=== PATIENT | male | born 1975 | race African-American/Black ===

== ENCOUNTER 2020-09-26 10:39 | Inpatient (IN) ==
[2020-09-26 13:14] LABS: Basophils % 0.2 % (0.0-0.8); Hematocrit 47.1 VOL% (42.0-52.0); Hemoglobin 15.6 GM/DL (14.0-18.0); Immature Granulocytes % 0.3 %; Immature Granulocytes Absolute 0.02 #; Lymphocytes % 15.9 % (21.2-54.2); Mean Corpuscular HGB Conc 33.1 GM/DL (32-36); Mean Corpuscular Volume 89.5 FL (87-102); Mean Platelet Volume 10.3 FL (9.6-12.0); Monocytes % 6.1 % (1.7-12.7); Neutrophils % 77.5 % (38.7-73.9); Platelet Count 153 T/CUMM (130-400); Red Blood Count 5.26 MC/CUMM (3.8-5.5); Red Cell Distribution Width 12.7 % (9.3-17.3); White Blood Count 6.4 T/CUMM (4-12)
[2020-09-26 13:37] LABS: Albumin 3.4 G/DL (3.4-5.0); Bilirubin,Total 0.5 MG/DL (0.20-1.00); Calcium 8.7 MG/DL (8.5-10.1); Ferritin 1002.8 ng/ml (26-388); Osmolality,Calculated 265.5 MOS/KG (273-304); Potassium 4.5 MMOL/L (3.5-5.1); Total Protein 8.4 G/DL (6.4-8.2)
[2020-09-26 14:25] LABS: Band Neutrophils 4 % (0-10); Lymphocytes 8 % (20-55); Segmented Neutrophils 81 % (50-85); Total Cells Counted 100
[2020-09-26 14:26] LABS: Hypochromasia Slight; Platelet Estimate Adequate
[2020-09-26] MEDS ORDERED: AZITHROMYCIN INJ 500 MG in SODIUM CHLORIDE 0.9% 250 ML IV ONE ×2 (14:38→17:30)
[2020-09-26] MEDS ORDERED: DEXTROSE 50% 25 GM/50 ML VIAL IV PRN (14:38)
[2020-09-26] MEDS ORDERED: GLUCAGON 1 MG VIAL IM PRN (14:38)
[2020-09-26] MEDS ORDERED: ONDANSETRON 4 MG/2 ML VIAL IV PRN (14:43)
[2020-09-26 15:05] LABS: INR 1.1; PT Patient Result 11.9 SECS (10.5-12.0)
[2020-09-26] MEDS ORDERED: ALBUTEROL INHALER 18 GM INH PRN (16:27)
[2020-09-26] MEDS: DEXAMETHASONE 4 MG/1 ML VIAL IV SCH (17:50)
[2020-09-26] MEDS: IVERMECTIN 3 MG TABLET PO SCH (17:50)
[2020-09-26] MEDS: ZINC GLUCONATE 50 MG TABLET PO SCH (17:50)
[2020-09-26] MEDS: CHOLECALCIFEROL 1,000 UNIT TABLET PO SCH (17:50)
[2020-09-26] MEDS: CETIRIZINE 10 MG TABLET PO SCH (17:50)
[2020-09-26] MEDS ORDERED: hydrALAZINE 20 MG/1 ML VIAL IV PRN (18:01)
[2020-09-26] MEDS: ALBUTEROL INHALER 18 GM INH SCH (19:10)
[2020-09-26] MEDS: cloNIDine 0.1 MG TABLET PO SCH (22:20)
[2020-09-26] MEDS: MELATONIN 3 MG TABLET PO SCH (22:20)
[2020-09-26] MEDS: ACETAMINOPHEN 325 MG TABLET PO PRN (22:21)
[2020-09-26] MEDS: ASCORBIC ACID 500 MG TABLET PO SCH (22:22)
[2020-09-26] MEDS: FAMOTIDINE 20 MG TABLET PO SCH (22:22)
[2020-09-26] MEDS: ENOXAPARIN 40 MG/0.4 ML SYRINGE SUBCUT SCH (22:23)
[2020-09-27] MEDS: DEXAMETHASONE 4 MG/1 ML VIAL IV SCH ×8 (00:45→23:40)
[2020-09-27] MEDS: ALBUTEROL INHALER 18 GM INH SCH ×7 (01:11→23:40)
[2020-09-27 06:19] LABS: Basophils % 0.2 % (0.0-0.8); Hematocrit 47.8 VOL% (42.0-52.0); Hemoglobin 16.1 GM/DL (14.0-18.0); Immature Granulocytes % 0.2 %; Immature Granulocytes Absolute 0.01 #; Lymphocytes # 0.6 10*3/uL (1.4-4.0); Lymphocytes % 12.3 % (21.2-54.2); Mean Corpuscular HGB Conc 33.7 GM/DL (32-36); Mean Corpuscular Volume 90.5 FL (87-102); Mean Platelet Volume 10.2 FL (9.6-12.0); Monocytes % 2.9 % (1.7-12.7); Neutrophils % 84.4 % (38.7-73.9); Platelet Count 124 T/CUMM (130-400); Red Blood Count 5.28 MC/CUMM (3.8-5.5); Red Cell Distribution Width 12.6 % (9.3-17.3); White Blood Count 5.2 T/CUMM (4-12)
[2020-09-27 06:40] LABS: Band Neutrophils 1 % (0-10); Lymphocytes 9 % (20-55); Segmented Neutrophils 82 % (50-85); Total Cells Counted 100
[2020-09-27 06:53] LABS: Albumin 3.1 G/DL (3.4-5.0); Calcium 8.8 MG/DL (8.5-10.1); Ferritin 1117.9 ng/ml (26-388); Potassium 4.2 MMOL/L (3.5-5.1)
[2020-09-27] MEDS: CETIRIZINE 10 MG TABLET PO SCH (09:00)
[2020-09-27] MEDS: cloNIDine 0.1 MG TABLET PO SCH ×2 (09:00→22:00)
[2020-09-27] MEDS: AZITHROMYCIN 250 MG TABLET PO SCH (09:00)
[2020-09-27] MEDS: ZINC GLUCONATE 50 MG TABLET PO SCH (09:00)
[2020-09-27] MEDS: CHOLECALCIFEROL 1,000 UNIT TABLET PO SCH (09:00)
[2020-09-27] MEDS: FAMOTIDINE 20 MG TABLET PO SCH ×2 (09:00→22:00)
[2020-09-27] MEDS: ASCORBIC ACID 500 MG TABLET PO SCH ×2 (09:00→22:00)
[2020-09-27] MEDS: IVERMECTIN 3 MG TABLET PO SCH (09:01)
[2020-09-27] MEDS: MELATONIN 3 MG TABLET PO SCH (22:00)
[2020-09-27] MEDS: ENOXAPARIN 40 MG/0.4 ML SYRINGE SUBCUT SCH (22:05)
[2020-09-28] MEDS: ALBUTEROL INHALER 18 GM INH SCH ×6 (03:30→23:47)
[2020-09-28] MEDS: DEXAMETHASONE 4 MG/1 ML VIAL IV SCH (03:45)
[2020-09-28 06:34] LABS: Basophils % 0.1 % (0.0-0.8); Hematocrit 46.5 VOL% (42.0-52.0); Hemoglobin 15.3 GM/DL (14.0-18.0); Immature Granulocytes % 0.8 %; Immature Granulocytes Absolute 0.12 #; Lymphocytes # 0.7 10*3/uL (1.4-4.0); Lymphocytes % 4.6 % (21.2-54.2); Mean Corpuscular HGB Conc 32.9 GM/DL (32-36); Mean Corpuscular Volume 90.6 FL (87-102); Mean Platelet Volume 10.9 FL (9.6-12.0); Monocytes % 3.9 % (1.7-12.7); Neutrophils % 90.6 % (38.7-73.9); Platelet Count 165 T/CUMM (130-400); Red Blood Count 5.13 MC/CUMM (3.8-5.5); Red Cell Distribution Width 12.7 % (9.3-17.3); White Blood Count 14.5 T/CUMM (4-12)
[2020-09-28 07:12] LABS: Band Neutrophils 2 % (0-10); Lymphocytes 5 % (20-55); Platelet Estimate Adequate; Segmented Neutrophils 87 % (50-85); Total Cells Counted 100
[2020-09-28 07:19] LABS: Ferritin 1298.4 ng/ml (26-388)
[2020-09-28] MEDS: IVERMECTIN 3 MG TABLET PO SCH (09:33)
[2020-09-28] MEDS: AZITHROMYCIN 250 MG TABLET PO SCH (09:33)
[2020-09-28] MEDS: FAMOTIDINE 20 MG TABLET PO SCH ×2 (09:33→20:45)
[2020-09-28] MEDS: ZINC GLUCONATE 50 MG TABLET PO SCH (09:33)
[2020-09-28] MEDS: CHOLECALCIFEROL 1,000 UNIT TABLET PO SCH (09:33)
[2020-09-28] MEDS: ASCORBIC ACID 500 MG TABLET PO SCH ×2 (09:33→20:45)
[2020-09-28] MEDS: cloNIDine 0.1 MG TABLET PO SCH ×2 (09:33→20:45)
[2020-09-28] MEDS: CETIRIZINE 10 MG TABLET PO SCH (09:33)
[2020-09-28] MEDS: MELATONIN 3 MG TABLET PO SCH (20:44)
[2020-09-28] MEDS: ENOXAPARIN 40 MG/0.4 ML SYRINGE SUBCUT SCH (20:45)
[2020-09-29] MEDS: ALBUTEROL INHALER 18 GM INH SCH ×6 (02:51→22:29)
[2020-09-29 06:28] LABS: Basophils % 0.1 % (0.0-0.8); Hematocrit 43.9 VOL% (42.0-52.0); Hemoglobin 14.6 GM/DL (14.0-18.0); Immature Granulocytes % 0.9 %; Immature Granulocytes Absolute 0.12 #; Lymphocytes # 0.8 10*3/uL (1.4-4.0); Lymphocytes % 5.8 % (21.2-54.2); Mean Corpuscular HGB Conc 33.3 GM/DL (32-36); Mean Corpuscular Volume 91.5 FL (87-102); Mean Platelet Volume 11.1 FL (9.6-12.0); Neutrophils % 89.2 % (38.7-73.9); Platelet Count 188 T/CUMM (130-400); White Blood Count 13.1 T/CUMM (4-12)
[2020-09-29 06:54] LABS: Calcium 8.7 MG/DL (8.5-10.1); Osmolality,Calculated 284.8 MOS/KG (273-304)
[2020-09-29 06:58] LABS: Ferritin 1450.5 ng/ml (26-388)
[2020-09-29] MEDS: AZITHROMYCIN 250 MG TABLET PO SCH (08:47)
[2020-09-29] MEDS: FAMOTIDINE 20 MG TABLET PO SCH (08:47)
[2020-09-29] MEDS: CETIRIZINE 10 MG TABLET PO SCH (08:47)
[2020-09-29] MEDS: cloNIDine 0.1 MG TABLET PO SCH ×2 (08:47→22:18)
[2020-09-29] MEDS: ASCORBIC ACID 500 MG TABLET PO SCH ×2 (08:47→20:08)
[2020-09-29] MEDS: CHOLECALCIFEROL 1,000 UNIT TABLET PO SCH (08:47)
[2020-09-29] MEDS: ZINC GLUCONATE 50 MG TABLET PO SCH (08:48)
[2020-09-29] MEDS: IVERMECTIN 3 MG TABLET PO SCH (08:51)
[2020-09-29 15:10] LABS: ABG Base Excess 1.1 MMOL/L (-2.5-2.5); ABG PCO2 35.7 MM HG (35-48); ABG PH 7.448 (7.35-7.45); ABG PO2 47.7 MM HG (80-95); ABG TCO2 20.9 MMOL/L (23-27)
[2020-09-29] MEDS ORDERED: SUCCINYLCHOLINE 200 MG/10 ML VIAL IV ONE (16:54)
[2020-09-29] MEDS ORDERED: ETOMIDATE 20 MG/10 ML VIAL IV ONE ×2 (16:54→16:56)
[2020-09-29] MEDS ORDERED: SUCCINYLCHOLINE 200 MG/10 ML VIAL ONE (16:57)
[2020-09-29] MEDS ORDERED: LACTATED RINGERS 1,000 ML IV ONE (17:00)
[2020-09-29] MEDS ORDERED: MIDAZOLAM 2 MG/2 ML VIAL IV ONE (17:25)
[2020-09-29] MEDS ORDERED: MIDAZOLAM 10 MG/2 ML VIAL ONE (17:25)
[2020-09-29] MEDS ORDERED: ROCURONIUM 100 MG/10 ML VIAL IV ONE ×2 (17:30→18:07)
[2020-09-29] MEDS: METOPROLOL TARTRATE 5 MG/5 ML VIAL IV PRN (18:11)
[2020-09-29] MEDS: fentaNYL INJ 1,250 MCG in SODIUM CHLORIDE 0.9% 225 ML IV PRN (18:11)
[2020-09-29 18:12] LABS: ABG Base Excess -1.7 MMOL/L (-2.5-2.5); ABG HCO3 22.8 MMOL/L (20-26); ABG Oxygen Saturation 90.2 % (95-100); ABG PCO2 64.3 MM HG (35-48); ABG PH 7.245 (7.35-7.45); ABG PO2 72.9 MM HG (80-95); ABG TCO2 24.4 MMOL/L (23-27)
[2020-09-29] MEDS: MIDAZOLAM 100 MG in SODIUM CHLORIDE 0.9% 80 ML IV PRN ×2 (18:12→21:59)
[2020-09-29] MEDS: ROCURONIUM 500 MG in SODIUM CHLORIDE 0.9% 500 ML IV PRN (18:13)
[2020-09-29] MEDS: ENOXAPARIN 80 MG/0.8 ML SYRINGE SUBCUT SCH (18:50)
[2020-09-29 19:49] LABS: Bilirubin,Urine Negative (Negative); Blood, Urine Small mg/dL (Negative); Glucose,Urine (UA) Negative (Negative); Ketones,Urine Negative (Negative); Mucus,Urine Occasional /LPF (Occasional); Nitrite,Urine Negative (Negative); Protein,Urine >=500 MG/DL; RBC,Urine 7 /HPF (0-4); Squamous Epithelial Cell,Urine Occasional /HPF (0-10); Urine Appearance Slightly Hazy (Clear); Urine Color Yellow (Yellow); Urine Specific Gravity 1.016 (1.001-1.035)
[2020-09-29] MEDS: MELATONIN 3 MG TABLET PO SCH (20:08)
[2020-09-29] MEDS: FAMOTIDINE 20 MG/2 ML VIAL IV SCH (21:52)
[2020-09-29] MEDS: cefTRIAXone 2,000 MG in SODIUM CHLORIDE 0.9% 100 ML IV SCH (21:52)
[2020-09-29] MEDS: cloNIDine 0.2 MG/24 HR PATCH TRANSDERM SCH (23:01)
[2020-09-30] MEDS: fentaNYL INJ 1,250 MCG in SODIUM CHLORIDE 0.9% 225 ML IV PRN ×4 (00:09→21:47)
[2020-09-30] MEDS: ROCURONIUM 500 MG in SODIUM CHLORIDE 0.9% 500 ML IV PRN ×4 (02:34→20:50)
[2020-09-30] MEDS: ALBUTEROL INHALER 18 GM INH SCH ×6 (02:34→22:00)
[2020-09-30] MEDS: MIDAZOLAM 100 MG in SODIUM CHLORIDE 0.9% 80 ML IV PRN ×5 (03:55→21:48)
[2020-09-30 04:09] LABS: Basophils % 0.1 % (0.0-0.8); Hemoglobin 13.3 GM/DL (14.0-18.0); Immature Granulocytes % 0.8 %; Immature Granulocytes Absolute 0.09 #; Lymphocytes # 1.2 10*3/uL (1.4-4.0); Lymphocytes % 11.4 % (21.2-54.2); Mean Corpuscular HGB Conc 31.7 GM/DL (32-36); Mean Platelet Volume 10.9 FL (9.6-12.0); Monocytes % 6.3 % (1.7-12.7); Neutrophils % 81.4 % (38.7-73.9); Platelet Count 178 T/CUMM (130-400); Red Blood Count 4.47 MC/CUMM (3.8-5.5); Red Cell Distribution Width 13.5 % (9.3-17.3); White Blood Count 10.8 T/CUMM (4-12)
[2020-09-30 04:18] LABS: ABG HCO3 25.2 MMOL/L (20-26); ABG Oxygen Saturation 93.8 % (95-100); ABG PCO2 46.8 MM HG (35-48); ABG PH 7.369 (7.35-7.45); ABG PO2 72.6 MM HG (80-95); ABG TCO2 23.6 MMOL/L (23-27)
[2020-09-30 04:35] LABS: Calcium 8.3 MG/DL (8.5-10.1); Potassium 4.3 MMOL/L (3.5-5.1)
[2020-09-30] MEDS: ENOXAPARIN 80 MG/0.8 ML SYRINGE SUBCUT SCH ×2 (06:11→17:33)
[2020-09-30] MEDS: FAMOTIDINE 20 MG/2 ML VIAL IV SCH ×2 (09:09→21:40)
[2020-09-30] MEDS: CHOLECALCIFEROL 1,000 UNIT TABLET PO SCH (09:11)
[2020-09-30] MEDS: CETIRIZINE 10 MG TABLET PO SCH (09:11)
[2020-09-30] MEDS: ASCORBIC ACID 500 MG TABLET PO SCH ×2 (09:11→21:35)
[2020-09-30] MEDS: ZINC GLUCONATE 50 MG TABLET PO SCH (09:11)
[2020-09-30] MEDS: AZITHROMYCIN 250 MG TABLET PO SCH (09:11)
[2020-09-30] MEDS: IVERMECTIN 3 MG TABLET PO SCH (09:22)
[2020-09-30] MEDS: methylPREDNISolone SOD SUC 40 MG/1 ML VIAL IV SCH ×2 (16:33→21:37)
[2020-09-30] MEDS: MELATONIN 3 MG TABLET PO SCH (21:17)
[2020-09-30] MEDS: cefTRIAXone 2,000 MG in SODIUM CHLORIDE 0.9% 100 ML IV SCH (21:37)
[2020-09-30] MEDS ORDERED: DEXTROSE 50% 25 GM/50 ML VIAL IV PRN (22:37)
[2020-09-30] MEDS ORDERED: GLUCAGON 1 MG VIAL IM PRN (22:37)
[2020-10-01] MEDS: INSULIN REGULAR 100 UNIT/ML SUBCUT SCH ×4 (00:34→18:32)
[2020-10-01] MEDS: ALBUTEROL INHALER 18 GM INH SCH ×6 (02:52→22:01)
[2020-10-01 03:47] LABS: ABG Base Excess -2.9 MMOL/L (-2.5-2.5); ABG HCO3 22.5 MMOL/L (20-26); ABG PCO2 41.6 MM HG (35-48); ABG PH 7.351 (7.35-7.45); ABG TCO2 23.8 MMOL/L (23-27)
[2020-10-01] MEDS: methylPREDNISolone SOD SUC 40 MG/1 ML VIAL IV SCH ×4 (03:59→21:41)
[2020-10-01] MEDS: MIDAZOLAM 100 MG in SODIUM CHLORIDE 0.9% 80 ML IV PRN ×2 (04:02→09:00)
[2020-10-01] MEDS: ROCURONIUM 500 MG in SODIUM CHLORIDE 0.9% 500 ML IV PRN (04:03)
[2020-10-01] MEDS: fentaNYL INJ 1,250 MCG in SODIUM CHLORIDE 0.9% 225 ML IV PRN (05:14)
[2020-10-01] MEDS: ENOXAPARIN 80 MG/0.8 ML SYRINGE SUBCUT SCH ×2 (05:19→18:32)
[2020-10-01 06:16] LABS: Basophils % 0.2 % (0.0-0.8); Hematocrit 40.4 VOL% (42.0-52.0); Hemoglobin 12.9 GM/DL (14.0-18.0); Immature Granulocytes % 1.5 %; Immature Granulocytes Absolute 0.14 #; Lymphocytes # 0.6 10*3/uL (1.4-4.0); Lymphocytes % 6.5 % (21.2-54.2); Mean Corpuscular HGB Conc 31.9 GM/DL (32-36); Mean Corpuscular Volume 95.7 FL (87-102); Mean Platelet Volume 10.6 FL (9.6-12.0); Monocytes % 4.2 % (1.7-12.7); Neutrophils % 87.6 % (38.7-73.9); Platelet Count 227 T/CUMM (130-400); Red Blood Count 4.22 MC/CUMM (3.8-5.5); Red Cell Distribution Width 13.9 % (9.3-17.3); White Blood Count 9.4 T/CUMM (4-12)
[2020-10-01 06:33] LABS: Calcium 8.6 MG/DL (8.5-10.1); Osmolality,Calculated 306.8 MOS/KG (273-304)
[2020-10-01 06:59] LABS: Hypochromasia 1+; Microcytosis 1+; Platelet Estimate Normal
[2020-10-01] MEDS: ZINC GLUCONATE 50 MG TABLET PO SCH (09:26)
[2020-10-01] MEDS: CHOLECALCIFEROL 1,000 UNIT TABLET PO SCH (09:26)
[2020-10-01] MEDS: ASCORBIC ACID 500 MG TABLET PO SCH ×2 (09:26→21:38)
[2020-10-01] MEDS: CETIRIZINE 10 MG TABLET PO SCH (09:26)
[2020-10-01] MEDS: FAMOTIDINE 20 MG/2 ML VIAL IV SCH ×2 (09:27→21:43)
[2020-10-01] MEDS: MELATONIN 3 MG TABLET PO SCH (21:28)
[2020-10-01] MEDS: cefTRIAXone 2,000 MG in SODIUM CHLORIDE 0.9% 100 ML IV SCH (21:38)
[2020-10-02] MEDS: INSULIN REGULAR 100 UNIT/ML SUBCUT SCH ×4 (00:15→17:56)
[2020-10-02] MEDS: methylPREDNISolone SOD SUC 40 MG/1 ML VIAL IV SCH ×4 (03:04→20:30)
[2020-10-02] MEDS: ALBUTEROL INHALER 18 GM INH SCH ×6 (03:04→23:23)
[2020-10-02 03:20] LABS: ABG HCO3 22.5 MMOL/L (20-26); ABG Oxygen Saturation 99.5 % (95-100); ABG PCO2 46.4 MM HG (35-48); ABG PH 7.304 (7.35-7.45); ABG PO2 249.2 MM HG (80-95); ABG TCO2 23.9 MMOL/L (23-27)
[2020-10-02 05:44] LABS: Basophils % 0.2 % (0.0-0.8); Hematocrit 40.6 VOL% (42.0-52.0); Hemoglobin 12.9 GM/DL (14.0-18.0); Immature Granulocytes Absolute 0.27 #; Lymphocytes # 0.8 10*3/uL (1.4-4.0); Lymphocytes % 5.7 % (21.2-54.2); Mean Corpuscular HGB Conc 31.8 GM/DL (32-36); Mean Corpuscular Volume 95.8 FL (87-102); Mean Platelet Volume 10.7 FL (9.6-12.0); Monocytes % 9.2 % (1.7-12.7); Neutrophils % 82.9 % (38.7-73.9); Platelet Count 305 T/CUMM (130-400); Red Blood Count 4.24 MC/CUMM (3.8-5.5); Red Cell Distribution Width 14.3 % (9.3-17.3); White Blood Count 13.2 T/CUMM (4-12)
[2020-10-02 06:02] LABS: Calcium 9.5 MG/DL (8.5-10.1); Osmolality,Calculated 321.4 MOS/KG (273-304); Potassium 5.2 MMOL/L (3.5-5.1)
[2020-10-02] MEDS: ENOXAPARIN 80 MG/0.8 ML SYRINGE SUBCUT SCH ×2 (06:07→17:00)
[2020-10-02 06:26] LABS: Lymphocytes 7 % (20-55); Platelet Estimate Normal; Segmented Neutrophils 86 % (50-85)
[2020-10-02 06:27] LABS: Total Cells Counted 100
[2020-10-02] MEDS: ZINC GLUCONATE 50 MG TABLET PO SCH (09:20)
[2020-10-02] MEDS: CETIRIZINE 10 MG TABLET PO SCH (09:20)
[2020-10-02] MEDS: ASCORBIC ACID 500 MG TABLET PO SCH ×2 (09:21→20:00)
[2020-10-02] MEDS: CHOLECALCIFEROL 1,000 UNIT TABLET PO SCH (09:21)
[2020-10-02] MEDS: FAMOTIDINE 20 MG/2 ML VIAL IV SCH ×2 (09:22→20:33)
[2020-10-02] MEDS: fentaNYL INJ 1,250 MCG in SODIUM CHLORIDE 0.9% 225 ML IV PRN (14:00)
[2020-10-02] MEDS: ROCURONIUM 500 MG in SODIUM CHLORIDE 0.9% 500 ML IV PRN (15:15)
[2020-10-02] MEDS: cefTRIAXone 2,000 MG in SODIUM CHLORIDE 0.9% 100 ML IV SCH (20:30)
[2020-10-02] MEDS: MELATONIN 3 MG TABLET PO SCH (20:32)
[2020-10-02] MEDS: MIDAZOLAM 100 MG in SODIUM CHLORIDE 0.9% 80 ML IV PRN (22:28)
[2020-10-03] MEDS: ACETAMINOPHEN 325 MG TABLET PO PRN ×3 (00:15→17:39)
[2020-10-03] MEDS: INSULIN REGULAR 100 UNIT/ML SUBCUT SCH ×4 (00:47→17:39)
[2020-10-03] MEDS: methylPREDNISolone SOD SUC 40 MG/1 ML VIAL IV SCH ×4 (01:30→21:40)
[2020-10-03] MEDS: ALBUTEROL INHALER 18 GM INH SCH ×6 (03:30→23:50)
[2020-10-03 04:04] LABS: ABG Base Excess -2.6 MMOL/L (-2.5-2.5); ABG HCO3 22.2 MMOL/L (20-26); ABG Oxygen Saturation 93.8 % (95-100); ABG PCO2 50.3 MM HG (35-48); ABG PH 7.296 (7.35-7.45); ABG TCO2 21.8 MMOL/L (23-27)
[2020-10-03] MEDS: fentaNYL INJ 1,250 MCG in SODIUM CHLORIDE 0.9% 225 ML IV PRN ×3 (04:36→22:15)
[2020-10-03 05:22] LABS: Basophils % 0.1 % (0.0-0.8); Hematocrit 38.2 VOL% (42.0-52.0); Hemoglobin 11.6 GM/DL (14.0-18.0); Immature Granulocytes % 1.9 %; Immature Granulocytes Absolute 0.21 #; Lymphocytes # 0.6 10*3/uL (1.4-4.0); Lymphocytes % 5.7 % (21.2-54.2); Mean Corpuscular HGB Conc 30.4 GM/DL (32-36); Mean Corpuscular Volume 98.7 FL (87-102); Mean Platelet Volume 10.3 FL (9.6-12.0); NRBC # 0.02 10*3/uL; Neutrophils % 79.3 % (38.7-73.9); Platelet Count 323 T/CUMM (130-400); Red Blood Count 3.87 MC/CUMM (3.8-5.5); Red Cell Distribution Width 14.8 % (9.3-17.3); White Blood Count 11.1 T/CUMM (4-12)
[2020-10-03 05:43] LABS: Calcium 9.4 MG/DL (8.5-10.1); Osmolality,Calculated 324.4 MOS/KG (273-304); Potassium 5.4 MMOL/L (3.5-5.1)
[2020-10-03] MEDS: ENOXAPARIN 80 MG/0.8 ML SYRINGE SUBCUT SCH (05:48)
[2020-10-03] MEDS ORDERED: ENOXAPARIN 40 MG/0.4 ML SYRINGE SUBCUT SCH (09:00)
[2020-10-03] MEDS: ASCORBIC ACID 500 MG TABLET PO SCH ×2 (09:10→21:39)
[2020-10-03] MEDS: CHOLECALCIFEROL 1,000 UNIT TABLET PO SCH (09:10)
[2020-10-03] MEDS: ZINC GLUCONATE 50 MG TABLET PO SCH (09:10)
[2020-10-03] MEDS: FAMOTIDINE 20 MG/2 ML VIAL IV SCH ×2 (09:12→21:39)
[2020-10-03] MEDS: METOPROLOL TARTRATE 5 MG/5 ML VIAL IV PRN (09:15)
[2020-10-03] MEDS ORDERED: cefTRIAXone 1,000 MG in SODIUM CHLORIDE 0.9% 100 ML IV SCH (09:30)
[2020-10-03] MEDS: CETIRIZINE 10 MG TABLET PO SCH (09:36)
[2020-10-03] MEDS: amLODIPine 5 MG TABLET PO SCH (11:36)
[2020-10-03] MEDS: MIDAZOLAM 100 MG in SODIUM CHLORIDE 0.9% 80 ML IV PRN (13:48)
[2020-10-03 14:49] LABS: Calcium 9.2 MG/DL (8.5-10.1); Potassium 5.5 MMOL/L (3.5-5.1)
[2020-10-03 15:00] LABS: Osmolality,Calculated 322.3 MOS/KG (273-304)
[2020-10-03] MEDS: MELATONIN 3 MG TABLET PO SCH (21:39)
[2020-10-04] MEDS: INSULIN REGULAR 100 UNIT/ML SUBCUT SCH ×4 (00:44→17:53)
[2020-10-04] MEDS: METOPROLOL TARTRATE 5 MG/5 ML VIAL IV PRN (01:03)
[2020-10-04] MEDS: methylPREDNISolone SOD SUC 40 MG/1 ML VIAL IV SCH ×4 (02:50→20:56)
[2020-10-04] MEDS: ALBUTEROL INHALER 18 GM INH SCH ×6 (03:52→23:15)
[2020-10-04 04:56] LABS: ABG HCO3 25.7 MMOL/L (20-26); ABG Oxygen Saturation 95.6 % (95-100); ABG PCO2 50.7 MM HG (35-48); ABG PH 7.323 (7.35-7.45); ABG PO2 80.5 MM HG (80-95); ABG TCO2 27.3 MMOL/L (23-27)
[2020-10-04 05:25] LABS: Basophils % 0.1 % (0.0-0.8); Eosinophils % 0.1 % (0.00-10.9); Hematocrit 42.4 VOL% (42.0-52.0); Hemoglobin 12.9 GM/DL (14.0-18.0); Immature Granulocytes % 3.2 %; Immature Granulocytes Absolute 0.42 #; Lymphocytes # 1.1 10*3/uL (1.4-4.0); Mean Corpuscular HGB Conc 30.4 GM/DL (32-36); Mean Corpuscular Volume 98.8 FL (87-102); Mean Platelet Volume 10.8 FL (9.6-12.0); Monocytes % 16.7 % (1.7-12.7); Neutrophils % 71.9 % (38.7-73.9); Platelet Count 324 T/CUMM (130-400); Red Blood Count 4.29 MC/CUMM (3.8-5.5); Red Cell Distribution Width 15.1 % (9.3-17.3); White Blood Count 13.3 T/CUMM (4-12)
[2020-10-04 05:47] LABS: Hypochromasia Slight; Lymphocytes 11 % (20-55); Microcytosis Slight; Platelet Estimate Adequate; Segmented Neutrophils 72 % (50-85); Total Cells Counted 100
[2020-10-04 05:52] LABS: Albumin 2.2 G/DL (3.4-5.0); Bilirubin,Total 1.8 MG/DL (0.20-1.00); Calcium 9.4 MG/DL (8.5-10.1); Ferritin 925.5 ng/ml (26-388); Osmolality,Calculated 323.9 MOS/KG (273-304); Potassium 5.5 MMOL/L (3.5-5.1); Total Protein 7.4 G/DL (6.4-8.2)
[2020-10-04 05:53] LABS: Uric Acid 5.2 MG/DL (3.5-7.2)
[2020-10-04] MEDS: fentaNYL INJ 1,250 MCG in SODIUM CHLORIDE 0.9% 225 ML IV PRN ×4 (06:40→22:40)
[2020-10-04 08:17] LABS: Protein/Creatinine Ratio,Urine 0.6 RATIO
[2020-10-04] MEDS: FAMOTIDINE 20 MG/2 ML VIAL IV SCH ×2 (08:56→20:56)
[2020-10-04] MEDS: ACETAMINOPHEN 325 MG TABLET PO PRN ×2 (08:57→20:56)
[2020-10-04] MEDS: amLODIPine 5 MG TABLET PO SCH (08:57)
[2020-10-04] MEDS: ZINC GLUCONATE 50 MG TABLET PO SCH (09:07)
[2020-10-04] MEDS: CETIRIZINE 10 MG TABLET PO SCH (09:07)
[2020-10-04] MEDS: ENOXAPARIN 80 MG/0.8 ML SYRINGE SUBCUT SCH (10:16)
[2020-10-04] MEDS: MEROPENEM 500 MG in SODIUM CHLORIDE 0.9% 100 ML IV SCH ×3 (10:16→20:57)
[2020-10-04] MEDS: ASCORBIC ACID 500 MG TABLET PO SCH ×2 (10:17→20:56)
[2020-10-04] MEDS: CHOLECALCIFEROL 1,000 UNIT TABLET PO SCH (10:17)
[2020-10-04] MEDS ORDERED: VANCOMYCIN INJ 2,500 MG in SODIUM CHLORIDE 0.9% 500 ML IV ONE (12:30)
[2020-10-04] MEDS: MIDAZOLAM 100 MG in SODIUM CHLORIDE 0.9% 80 ML IV PRN ×2 (12:45→23:17)
[2020-10-04] MEDS: FLUCONAZOLE INJ 200 MG/100 ML PREMIX IV SCH (16:20)
[2020-10-04] MEDS ORDERED: DEXTROSE 5% 1,000 ML IV SCH (16:30)
[2020-10-04] MEDS: MELATONIN 3 MG TABLET PO SCH (20:55)
[2020-10-05] MEDS: INSULIN REGULAR 100 UNIT/ML SUBCUT SCH ×4 (01:48→20:21)
[2020-10-05] MEDS: ACETAMINOPHEN 325 MG TABLET PO PRN ×2 (01:52→23:09)
[2020-10-05] MEDS: methylPREDNISolone SOD SUC 40 MG/1 ML VIAL IV SCH ×4 (01:57→17:40)
[2020-10-05] MEDS: fentaNYL INJ 1,250 MCG in SODIUM CHLORIDE 0.9% 225 ML IV PRN ×3 (02:29→11:19)
[2020-10-05 04:29] LABS: Basophils % 0.2 % (0.0-0.8); Eosinophils % 0.1 % (0.00-10.9); Hematocrit 39.1 VOL% (42.0-52.0); Hemoglobin 12.1 GM/DL (14.0-18.0); Immature Granulocytes % 2.8 %; Immature Granulocytes Absolute 0.36 #; Lymphocytes # 0.8 10*3/uL (1.4-4.0); Lymphocytes % 6.2 % (21.2-54.2); Mean Corpuscular HGB Conc 30.9 GM/DL (32-36); Mean Platelet Volume 10.7 FL (9.6-12.0); Monocytes % 11.7 % (1.7-12.7); NRBC # 0.03 10*3/uL; Platelet Count 266 T/CUMM (130-400); Red Blood Count 3.95 MC/CUMM (3.8-5.5); Red Cell Distribution Width 14.7 % (9.3-17.3)
[2020-10-05 04:30] LABS: Osmolality,Calculated 318.3 MOS/KG (273-304)
[2020-10-05 04:37] LABS: Ferritin 1005.9 ng/ml (26-388)
[2020-10-05 04:38] LABS: Potassium 6.1 MMOL/L (3.5-5.1)
[2020-10-05 04:42] LABS: ABG Base Excess -0.2 MMOL/L (-2.5-2.5); ABG HCO3 25.9 MMOL/L (20-26); ABG Oxygen Saturation 98.8 % (95-100); ABG PCO2 47.9 MM HG (35-48); ABG PH 7.351 (7.35-7.45); ABG PO2 165.6 MM HG (80-95); ABG TCO2 27.4 MMOL/L (23-27)
[2020-10-05] MEDS: MEROPENEM 500 MG in SODIUM CHLORIDE 0.9% 100 ML IV SCH ×3 (05:07→15:00)
[2020-10-05] MEDS: ALBUTEROL INHALER 18 GM INH SCH ×5 (05:07→19:15)
[2020-10-05] MEDS ORDERED: INSULIN REGULAR 10 UNIT, CALCIUM GLUCONATE 1,000 MG in DEXTROSE 10% 250 ML IV ONE (05:36)
[2020-10-05] MEDS: ASCORBIC ACID 500 MG TABLET PO SCH ×2 (08:13→21:49)
[2020-10-05] MEDS: ENOXAPARIN 80 MG/0.8 ML SYRINGE SUBCUT SCH (08:13)
[2020-10-05] MEDS: ZINC GLUCONATE 50 MG TABLET PO SCH (08:13)
[2020-10-05] MEDS: CETIRIZINE 10 MG TABLET PO SCH (08:13)
[2020-10-05] MEDS: CHOLECALCIFEROL 1,000 UNIT TABLET PO SCH (08:13)
[2020-10-05] MEDS: amLODIPine 10 MG TABLET PO SCH (08:13)
[2020-10-05] MEDS: FAMOTIDINE 20 MG/2 ML VIAL IV SCH ×2 (08:14→21:53)
[2020-10-05] MEDS: MIDAZOLAM 100 MG in SODIUM CHLORIDE 0.9% 80 ML IV PRN ×2 (09:00→22:42)
[2020-10-05 13:52] LABS: Calcium 9.4 MG/DL (8.5-10.1); Osmolality,Calculated 319.6 MOS/KG (273-304)
[2020-10-05 13:56] LABS: Potassium 6.8 MMOL/L (3.5-5.1)
[2020-10-05] MEDS ORDERED: DEXTROSE 50% 25 GM/50 ML VIAL IV ONE (14:02)
[2020-10-05] MEDS ORDERED: INSULIN REGULAR 100 UNIT/ML IV ONE (14:02)
[2020-10-05] MEDS ORDERED: CALCIUM GLUCONATE 1,000 MG in SODIUM CHLORIDE 0.9% 100 ML IV ONE (14:02)
[2020-10-05] MEDS ORDERED: SODIUM BICARBONATE 50 MEQ/50 ML VIAL IV ONE (14:02)
[2020-10-05] MEDS ORDERED: INSULIN REGULAR 10 UNIT, CALCIUM GLUCONATE 1,000 MG in DEXTROSE 10% 250 ML IV STA (14:05)
[2020-10-05] MEDS: fentaNYL INJ 2,500 MCG in SODIUM CHLORIDE 0.9% 75 ML IV PRN ×2 (15:00→21:25)
[2020-10-05] MEDS: FLUCONAZOLE INJ 200 MG/100 ML PREMIX IV SCH (16:39)
[2020-10-05] MEDS: VANCOMYCIN INJ 2,500 MG in SODIUM CHLORIDE 0.9% 500 ML IV SCH (17:38)
[2020-10-05] MEDS: SODIUM ZIRCONIUM CYCLOSILICATE 10 GM PACK PO SCH ×2 (18:04→21:49)
[2020-10-05 18:34] LABS: Bilirubin,Urine Negative (Negative); Blood, Urine Negative (Negative); Glucose,Urine (UA) Negative (Negative); Ketones,Urine Negative (Negative); Mucus,Urine Occasional /LPF (Occasional); Nitrite,Urine Negative (Negative); Protein,Urine Negative; RBC,Urine 19 /HPF (0-4); Squamous Epithelial Cell,Urine Occasional /HPF (0-10); Urine Appearance CLEAR (Clear); Urine Color Yellow (Yellow); Urine Specific Gravity 1.021 (1.001-1.035)
[2020-10-05 20:42] LABS: Calcium 9.2 MG/DL (8.5-10.1); Osmolality,Calculated 319.4 MOS/KG (273-304)
[2020-10-05 20:47] LABS: Potassium 6.3 MMOL/L (3.5-5.1)
[2020-10-05] MEDS: MELATONIN 3 MG TABLET PO SCH (21:49)
[2020-10-05 23:18] LABS: Hepatitis B Surface Ag Quant < 0.10 Index; Hepatitis B Surface Ag Result Non-Reactive (NonReactive); Hepatitis C Virus Ab Quant 0.06 Index; Hepatitis C Virus Ab Result Non-Reactive (NonReactive)
[2020-10-06] MEDS: ALBUTEROL INHALER 18 GM INH SCH ×6 (03:09→19:02)
[2020-10-06] MEDS: INSULIN REGULAR 100 UNIT/ML SUBCUT SCH ×4 (03:10→18:02)
[2020-10-06] MEDS: MEROPENEM 500 MG in SODIUM CHLORIDE 0.9% 100 ML IV SCH ×3 (03:20→17:01)
[2020-10-06] MEDS: methylPREDNISolone SOD SUC 40 MG/1 ML VIAL IV SCH ×3 (03:22→16:01)
[2020-10-06 03:57] LABS: ABG Base Excess -1.4 MMOL/L (-2.5-2.5); ABG HCO3 24.7 MMOL/L (20-26); ABG Oxygen Saturation 99.1 % (95-100); ABG PCO2 46.9 MM HG (35-48); ABG PH 7.339 (7.35-7.45); ABG PO2 247.4 MM HG (80-95); ABG TCO2 26.1 MMOL/L (23-27)
[2020-10-06] MEDS: fentaNYL INJ 2,500 MCG in SODIUM CHLORIDE 0.9% 75 ML IV PRN ×3 (04:25→19:40)
[2020-10-06 04:54] LABS: Calcium 9.3 MG/DL (8.5-10.1); Osmolality,Calculated 318.6 MOS/KG (273-304)
[2020-10-06 04:57] LABS: Basophils % 0.1 % (0.0-0.8); Eosinophils % 0.1 % (0.00-10.9); Hematocrit 39.8 VOL% (42.0-52.0); Immature Granulocytes % 1.8 %; Immature Granulocytes Absolute 0.31 #; Lymphocytes # 1.3 10*3/uL (1.4-4.0); Lymphocytes % 7.9 % (21.2-54.2); Mean Corpuscular HGB Conc 30.2 GM/DL (32-36); Mean Corpuscular Volume 100.5 FL (87-102); Mean Platelet Volume 11.7 FL (9.6-12.0); Monocytes % 10.8 % (1.7-12.7); NRBC # 0.06 10*3/uL; Neutrophils % 79.3 % (38.7-73.9); Platelet Count 224 T/CUMM (130-400); Red Blood Count 3.96 MC/CUMM (3.8-5.5); Red Cell Distribution Width 14.2 % (9.3-17.3); White Blood Count 17.1 T/CUMM (4-12)
[2020-10-06 05:00] LABS: Potassium 6.1 MMOL/L (3.5-5.1)
[2020-10-06] MEDS: CHOLECALCIFEROL 1,000 UNIT TABLET PO SCH (08:05)
[2020-10-06] MEDS: ASCORBIC ACID 500 MG TABLET PO SCH ×2 (08:05→21:10)
[2020-10-06] MEDS: ENOXAPARIN 80 MG/0.8 ML SYRINGE SUBCUT SCH (08:05)
[2020-10-06] MEDS: FAMOTIDINE 20 MG/2 ML VIAL IV SCH ×2 (08:06→21:05)
[2020-10-06] MEDS: amLODIPine 10 MG TABLET PO SCH (08:06)
[2020-10-06] MEDS: ZINC GLUCONATE 50 MG TABLET PO SCH (08:07)
[2020-10-06] MEDS: SODIUM ZIRCONIUM CYCLOSILICATE 10 GM PACK PO SCH ×3 (08:07→21:10)
[2020-10-06] MEDS: CETIRIZINE 10 MG TABLET PO SCH (08:07)
[2020-10-06] MEDS: cloNIDine 0.2 MG/24 HR PATCH TRANSDERM SCH (08:08)
[2020-10-06] MEDS ORDERED: INSULIN REGULAR 10 UNIT, CALCIUM GLUCONATE 1,000 MG in DEXTROSE 10% 250 ML IV ONE (09:00)
[2020-10-06] MEDS: MIDAZOLAM 100 MG in SODIUM CHLORIDE 0.9% 80 ML IV PRN ×2 (10:00→21:39)
[2020-10-06] MEDS ORDERED: HEPARIN 10,000 UNIT/10 ML VIAL IV SCH (11:15)
[2020-10-06 15:25] LABS: INR 1.1; PT Patient Result 12.3 SECS (10.5-12.0); Partial Thromboplastin Time 40.2 SECS (23.9-33.8)
[2020-10-06 15:34] LABS: Calcium 9.1 MG/DL (8.5-10.1); Osmolality,Calculated 304.4 MOS/KG (273-304); Potassium 5.2 MMOL/L (3.5-5.1)
[2020-10-06] MEDS: FLUCONAZOLE INJ 200 MG/100 ML PREMIX IV SCH (16:00)
[2020-10-06] MEDS: HEPARIN DRIP 25,000 UNITS/500 ML PREMIX IV SCH (17:30)
[2020-10-06] MEDS: VANCOMYCIN INJ 2,500 MG in SODIUM CHLORIDE 0.9% 500 ML IV SCH (18:01)
[2020-10-06] MEDS: MELATONIN 3 MG TABLET PO SCH (21:10)
[2020-10-06 23:06] LABS: INR 1.1; PT Patient Result 12.4 SECS (10.5-12.0)
[2020-10-06 23:07] LABS: Partial Thromboplastin Time 53.8 SECS (23.9-33.8)
[2020-10-07] MEDS: MEROPENEM 500 MG in SODIUM CHLORIDE 0.9% 100 ML IV SCH ×2 (00:53→08:26)
[2020-10-07] MEDS: methylPREDNISolone SOD SUC 40 MG/1 ML VIAL IV SCH ×4 (00:53→20:34)
[2020-10-07] MEDS: ACETAMINOPHEN 325 MG TABLET PO PRN ×3 (00:53→20:34)
[2020-10-07] MEDS: ALBUTEROL INHALER 18 GM INH SCH ×6 (00:57→18:31)
[2020-10-07] MEDS: INSULIN REGULAR 100 UNIT/ML SUBCUT SCH ×4 (01:00→18:28)
[2020-10-07] MEDS: fentaNYL INJ 2,500 MCG in SODIUM CHLORIDE 0.9% 75 ML IV PRN ×3 (03:00→17:30)
[2020-10-07 03:48] LABS: ABG HCO3 24.5 MMOL/L (20-26); ABG Oxygen Saturation 98.9 % (95-100); ABG PH 7.364 (7.35-7.45); ABG PO2 233.6 MM HG (80-95); ABG TCO2 25.9 MMOL/L (23-27)
[2020-10-07] MEDS: HEPARIN DRIP 25,000 UNITS/500 ML PREMIX IV SCH ×2 (03:50→16:05)
[2020-10-07 05:16] LABS: Basophils % 0.1 % (0.0-0.8); Hematocrit 35.7 VOL% (42.0-52.0); Immature Granulocytes % 1.7 %; Immature Granulocytes Absolute 0.28 #; Lymphocytes # 0.8 10*3/uL (1.4-4.0); Lymphocytes % 4.5 % (21.2-54.2); Mean Corpuscular HGB Conc 30.8 GM/DL (32-36); Mean Corpuscular Volume 98.1 FL (87-102); Mean Platelet Volume 11.8 FL (9.6-12.0); Monocytes % 5.5 % (1.7-12.7); NRBC # 0.02 10*3/uL; Neutrophils % 88.2 % (38.7-73.9); Platelet Count 195 T/CUMM (130-400); Red Blood Count 3.64 MC/CUMM (3.8-5.5); Red Cell Distribution Width 13.5 % (9.3-17.3); White Blood Count 16.6 T/CUMM (4-12)
[2020-10-07 05:37] LABS: Anisocytosis 1+; Band Neutrophils 4 % (0-10); Lymphocytes 7 % (20-55); Platelet Estimate Normal; Segmented Neutrophils 84 % (50-85); Total Cells Counted 100
[2020-10-07 05:38] LABS: Macrocytosis 1+
[2020-10-07 05:50] LABS: Osmolality,Calculated 315.3 MOS/KG (273-304); Potassium 5.3 MMOL/L (3.5-5.1)
[2020-10-07] MEDS ORDERED: MIDAZOLAM 100 MG in SODIUM CHLORIDE 0.9% 80 ML IV SCH (06:00)
[2020-10-07 06:07] LABS: INR 1.1; PT Patient Result 12.4 SECS (10.5-12.0)
[2020-10-07 06:13] LABS: Partial Thromboplastin Time 81.5 SECS (23.9-33.8)
[2020-10-07] MEDS: SODIUM ZIRCONIUM CYCLOSILICATE 10 GM PACK PO SCH (08:22)
[2020-10-07] MEDS: amLODIPine 10 MG TABLET PO SCH (08:23)
[2020-10-07] MEDS: CHOLECALCIFEROL 1,000 UNIT TABLET PO SCH (08:23)
[2020-10-07] MEDS: ASCORBIC ACID 500 MG TABLET PO SCH ×2 (08:23→20:33)
[2020-10-07] MEDS: FAMOTIDINE 20 MG/2 ML VIAL IV SCH ×2 (08:23→20:35)
[2020-10-07] MEDS: ZINC GLUCONATE 50 MG TABLET PO SCH (08:25)
[2020-10-07] MEDS: BISACODYL 5 MG TABLET PO PRN (08:26)
[2020-10-07] MEDS: CETIRIZINE 10 MG TABLET PO SCH (08:26)
[2020-10-07] MEDS ORDERED: MIDAZOLAM 100 MG in SODIUM CHLORIDE 0.9% 80 ML IV PRN (08:57)
[2020-10-07] MEDS ORDERED: VANCOMYCIN INJ 1,500 MG in SODIUM CHLORIDE 0.9% 500 ML IV PRN (11:30)
[2020-10-07] MEDS: OXACILLIN 2,000 MG in SODIUM CHLORIDE 0.9% 100 ML IV SCH ×3 (12:25→20:32)
[2020-10-07] MEDS ORDERED: SODIUM ZIRCONIUM CYCLOSILICATE 10 GM PACK PO SCH (15:00)
[2020-10-07] MEDS: FLUCONAZOLE INJ 200 MG/100 ML PREMIX IV SCH (15:04)
[2020-10-07] MEDS: MELATONIN 3 MG TABLET PO SCH (20:34)
[2020-10-08] MEDS: ALBUTEROL INHALER 18 GM INH SCH ×7 (00:20→23:25)
[2020-10-08] MEDS: INSULIN REGULAR 100 UNIT/ML SUBCUT SCH ×4 (00:40→17:30)
[2020-10-08] MEDS: OXACILLIN 2,000 MG in SODIUM CHLORIDE 0.9% 100 ML IV SCH ×6 (01:38→20:58)
[2020-10-08] MEDS: ACETAMINOPHEN 325 MG TABLET PO PRN ×3 (01:40→15:00)
[2020-10-08] MEDS: BISACODYL 5 MG TABLET PO PRN (01:48)
[2020-10-08 05:33] LABS: Basophils % 0.1 % (0.0-0.8); Eosinophils % 0.1 % (0.00-10.9); Hematocrit 34.8 VOL% (42.0-52.0); Hemoglobin 10.8 GM/DL (14.0-18.0); Immature Granulocytes % 1.6 %; Immature Granulocytes Absolute 0.28 #; Lymphocytes # 1.7 10*3/uL (1.4-4.0); Lymphocytes % 9.8 % (21.2-54.2); Mean Corpuscular Volume 96.7 FL (87-102); Mean Platelet Volume 12.2 FL (9.6-12.0); Monocytes % 9.5 % (1.7-12.7); NRBC # 0.02 10*3/uL; Neutrophils % 78.9 % (38.7-73.9); Platelet Count 159 T/CUMM (130-400); Red Cell Distribution Width 13.2 % (9.3-17.3); White Blood Count 17.4 T/CUMM (4-12)
[2020-10-08] MEDS: HEPARIN DRIP 25,000 UNITS/500 ML PREMIX IV SCH ×3 (05:49→22:53)
[2020-10-08 05:52] LABS: Calcium 9.1 MG/DL (8.5-10.1); Osmolality,Calculated 319.1 MOS/KG (273-304); Potassium 4.6 MMOL/L (3.5-5.1)
[2020-10-08 05:56] LABS: ABG Base Excess -0.7 MMOL/L (-2.5-2.5); ABG HCO3 26.5 MMOL/L (20-26); ABG Oxygen Saturation 98.2 % (95-100); ABG PCO2 55.7 MM HG (35-48); ABG PH 7.296 (7.35-7.45); ABG PO2 131.4 MM HG (80-95); ABG TCO2 28.3 MMOL/L (23-27)
[2020-10-08] MEDS: CHOLECALCIFEROL 1,000 UNIT TABLET PO SCH (08:30)
[2020-10-08] MEDS: ASCORBIC ACID 500 MG TABLET PO SCH ×2 (08:30→20:57)
[2020-10-08] MEDS: amLODIPine 10 MG TABLET PO SCH (08:30)
[2020-10-08] MEDS: ZINC GLUCONATE 50 MG TABLET PO SCH (08:30)
[2020-10-08] MEDS: CETIRIZINE 10 MG TABLET PO SCH (08:30)
[2020-10-08] MEDS: FAMOTIDINE 20 MG/2 ML VIAL IV SCH ×2 (08:32→20:58)
[2020-10-08] MEDS: methylPREDNISolone SOD SUC 40 MG/1 ML VIAL IV SCH ×2 (08:35→20:59)
[2020-10-08] MEDS: DEXMEDETOMIDINE 200 MCG in SODIUM CHLORIDE 0.9% 48 ML IV PRN ×4 (11:30→22:52)
[2020-10-08] MEDS: fentaNYL INJ 2,500 MCG in SODIUM CHLORIDE 0.9% 75 ML IV PRN (13:15)
[2020-10-08] MEDS: FLUCONAZOLE INJ 200 MG/100 ML PREMIX IV SCH (15:03)
[2020-10-08] MEDS: MELATONIN 3 MG TABLET PO SCH (20:57)
[2020-10-09] MEDS: INSULIN REGULAR 100 UNIT/ML SUBCUT SCH ×2 (00:23→06:32)
[2020-10-09] MEDS: OXACILLIN 2,000 MG in SODIUM CHLORIDE 0.9% 100 ML IV SCH ×3 (00:23→08:30)
[2020-10-09] MEDS: DEXMEDETOMIDINE 200 MCG in SODIUM CHLORIDE 0.9% 48 ML IV PRN (02:10)
[2020-10-09] MEDS: fentaNYL INJ 2,500 MCG in SODIUM CHLORIDE 0.9% 75 ML IV PRN ×4 (02:12→22:10)
[2020-10-09] MEDS: ALBUTEROL INHALER 18 GM INH SCH ×6 (03:20→23:40)
[2020-10-09] MEDS: DEXMEDETOMIDINE 400 MCG in SODIUM CHLORIDE 0.9% 96 ML IV PRN ×4 (04:25→19:25)
[2020-10-09 04:44] LABS: ABG Base Excess -0.2 MMOL/L (-2.5-2.5); ABG HCO3 24.9 MMOL/L (20-26); ABG Oxygen Saturation 95.7 % (95-100); ABG PCO2 42.8 MM HG (35-48); ABG PH 7.383 (7.35-7.45); ABG PO2 85.6 MM HG (80-95); ABG TCO2 26.2 MMOL/L (23-27)
[2020-10-09 05:38] LABS: Basophils % 0.1 % (0.0-0.8); Hematocrit 32.6 VOL% (42.0-52.0); Hemoglobin 10.2 GM/DL (14.0-18.0); Immature Granulocytes % 2.8 %; Immature Granulocytes Absolute 0.46 #; Lymphocytes # 0.6 10*3/uL (1.4-4.0); Lymphocytes % 3.6 % (21.2-54.2); Mean Corpuscular HGB Conc 31.3 GM/DL (32-36); Mean Platelet Volume 12.8 FL (9.6-12.0); Monocytes % 4.5 % (1.7-12.7); Platelet Count 175 T/CUMM (130-400); Red Blood Count 3.43 MC/CUMM (3.8-5.5); White Blood Count 16.2 T/CUMM (4-12)
[2020-10-09 05:56] LABS: Calcium 8.7 MG/DL (8.5-10.1); Potassium 5.7 MMOL/L (3.5-5.1)
[2020-10-09] MEDS ORDERED: SODIUM POLYSTYRENE SULFATE 15 GM/60 ML BOTTLE PO ONE (07:01)
[2020-10-09] MEDS: amLODIPine 10 MG TABLET PO SCH (08:30)
[2020-10-09] MEDS: BISACODYL 5 MG TABLET PO PRN (08:30)
[2020-10-09] MEDS: INSULIN GLARGINE 100 UNIT/ML SUBCUT SCH (08:30)
[2020-10-09] MEDS: FAMOTIDINE 20 MG/2 ML VIAL IV SCH ×2 (08:32→21:13)
[2020-10-09] MEDS: ACETAMINOPHEN 325 MG TABLET PO PRN ×4 (08:45→21:11)
[2020-10-09] MEDS: methylPREDNISolone SOD SUC 40 MG/1 ML VIAL IV SCH ×2 (09:06→21:12)
[2020-10-09] MEDS: CHOLECALCIFEROL 1,000 UNIT TABLET PO SCH (09:07)
[2020-10-09] MEDS: ZINC GLUCONATE 50 MG TABLET PO SCH (09:07)
[2020-10-09] MEDS: ASCORBIC ACID 500 MG TABLET PO SCH ×2 (09:07→21:11)
[2020-10-09] MEDS ORDERED: INSULIN LISPRO 100 UNIT/ML SUBCUT SCH (10:00)
[2020-10-09 10:11] LABS: Band Neutrophils 2 % (0-10); Lymphocytes 4 % (20-55); Platelet Estimate Normal; Segmented Neutrophils 89 % (50-85); Total Cells Counted 100
[2020-10-09] MEDS ORDERED: VANCOMYCIN INJ 1,250 MG in SODIUM CHLORIDE 0.9% 250 ML IV PRN (11:18)
[2020-10-09] MEDS: CETIRIZINE 10 MG TABLET PO SCH (12:02)
[2020-10-09] MEDS: MEROPENEM 500 MG in SODIUM CHLORIDE 0.9% 100 ML IV SCH (12:02)
[2020-10-09] MEDS: hydrALAZINE 25 MG TABLET PO SCH ×2 (12:25→21:10)
[2020-10-09] MEDS: INSULIN LISPRO 100 UNIT/ML SUBCUT SCH ×3 (12:25→21:12)
[2020-10-09] MEDS ORDERED: VANCOMYCIN INJ 2,500 MG in SODIUM CHLORIDE 0.9% 500 ML IV ONE (13:00)
[2020-10-09] MEDS: HEPARIN DRIP 25,000 UNITS/500 ML PREMIX IV SCH (13:19)
[2020-10-09 13:21] LABS: Bilirubin,Urine Negative (Negative); Blood, Urine Negative (Negative); Glucose,Urine (UA) Negative (Negative); Granular Casts,Urine 3 /LPF (0-1); Hyaline Casts,Urine 25 /LPF (0-3); Ketones,Urine Negative (Negative); Mucus,Urine Occasional /LPF (Occasional); Nitrite,Urine Negative (Negative); Protein,Urine Negative; RBC,Urine 11 /HPF (0-4); Red Blood Cell Casts,Urine 6 /LPF (<1); Urine Appearance CLOUDY (Clear); Urine Color Yellow (Yellow); Urine Specific Gravity 1.017 (1.001-1.035); Urine Urobilinogen < 2.0 EU/DL (0.2-1.0)
[2020-10-09] MEDS: FLUCONAZOLE INJ 200 MG/100 ML PREMIX IV SCH (15:26)
[2020-10-09] MEDS: MELATONIN 3 MG TABLET PO SCH (21:10)
[2020-10-10] MEDS: INSULIN LISPRO 100 UNIT/ML SUBCUT SCH ×6 (00:40→21:02)
[2020-10-10] MEDS: DEXMEDETOMIDINE 400 MCG in SODIUM CHLORIDE 0.9% 96 ML IV PRN ×5 (02:05→20:47)
[2020-10-10] MEDS: ALBUTEROL INHALER 18 GM INH SCH ×5 (03:30→23:40)
[2020-10-10 03:47] LABS: Basophils % 0.1 % (0.0-0.8); Hematocrit 29.8 VOL% (42.0-52.0); Hemoglobin 9.3 GM/DL (14.0-18.0); Immature Granulocytes Absolute 0.45 #; Lymphocytes % 6.9 % (21.2-54.2); Mean Corpuscular HGB Conc 31.2 GM/DL (32-36); Mean Corpuscular Volume 96.1 FL (87-102); Mean Platelet Volume 12.7 FL (9.6-12.0); Monocytes % 8.3 % (1.7-12.7); NRBC # 0.11 10*3/uL; Neutrophils % 81.7 % (38.7-73.9); Platelet Count 161 T/CUMM (130-400); Red Cell Distribution Width 13.2 % (9.3-17.3); White Blood Count 14.9 T/CUMM (4-12)
[2020-10-10 04:06] LABS: Bilirubin,Total 1.1 MG/DL (0.20-1.00); Calcium 8.3 MG/DL (8.5-10.1); Total Protein 5.8 G/DL (6.4-8.2)
[2020-10-10 04:09] LABS: Potassium 6.1 MMOL/L (3.5-5.1)
[2020-10-10] MEDS: fentaNYL INJ 2,500 MCG in SODIUM CHLORIDE 0.9% 75 ML IV PRN ×2 (04:25→09:15)
[2020-10-10 04:27] LABS: ABG HCO3 23.5 MMOL/L (20-26); ABG PCO2 42.1 MM HG (35-48); ABG PH 7.369 (7.35-7.45); ABG PO2 96.1 MM HG (80-95)
[2020-10-10] MEDS ORDERED: SODIUM POLYSTYRENE SULFATE 15 GM/60 ML BOTTLE PO ONE (04:45)
[2020-10-10] MEDS: hydrALAZINE 25 MG TABLET PO SCH ×3 (06:29→21:13)
[2020-10-10] MEDS: FAMOTIDINE 20 MG/2 ML VIAL IV SCH ×2 (09:15→21:02)
[2020-10-10] MEDS: HEPARIN DRIP 25,000 UNITS/500 ML PREMIX IV SCH ×2 (09:15→21:13)
[2020-10-10] MEDS: INSULIN GLARGINE 100 UNIT/ML SUBCUT SCH (09:15)
[2020-10-10] MEDS: methylPREDNISolone SOD SUC 40 MG/1 ML VIAL IV SCH ×2 (09:15→21:02)
[2020-10-10] MEDS: ASCORBIC ACID 500 MG TABLET PO SCH ×2 (09:20→21:01)
[2020-10-10] MEDS: amLODIPine 10 MG TABLET PO SCH (09:20)
[2020-10-10] MEDS: ZINC GLUCONATE 50 MG TABLET PO SCH (09:20)
[2020-10-10] MEDS: CHOLECALCIFEROL 1,000 UNIT TABLET PO SCH (09:20)
[2020-10-10] MEDS: CETIRIZINE 10 MG TABLET PO SCH (12:45)
[2020-10-10] MEDS: fentaNYL INJ 5,000 MCG in SODIUM CHLORIDE 0.9% 150 ML IV PRN ×2 (13:23→20:45)
[2020-10-10] MEDS: MEROPENEM 500 MG in SODIUM CHLORIDE 0.9% 100 ML IV SCH (17:05)
[2020-10-10] MEDS: ACETAMINOPHEN 325 MG TABLET PO PRN ×2 (17:05→21:01)
[2020-10-10] MEDS: FLUCONAZOLE INJ 200 MG/100 ML PREMIX IV SCH (18:45)
[2020-10-10] MEDS ORDERED: VANCOMYCIN INJ 1,250 MG in SODIUM CHLORIDE 0.9% 250 ML IV ONE (21:00)
[2020-10-10] MEDS: MELATONIN 3 MG TABLET PO SCH (21:01)
[2020-10-11] MEDS: DEXMEDETOMIDINE 400 MCG in SODIUM CHLORIDE 0.9% 96 ML IV PRN ×6 (00:05→19:20)
[2020-10-11] MEDS: INSULIN LISPRO 100 UNIT/ML SUBCUT SCH ×6 (00:39→21:34)
[2020-10-11] MEDS: ALBUTEROL INHALER 18 GM INH SCH ×6 (03:15→23:36)
[2020-10-11] MEDS: fentaNYL INJ 5,000 MCG in SODIUM CHLORIDE 0.9% 150 ML IV PRN ×4 (03:35→23:40)
[2020-10-11 03:46] LABS: ABG Base Excess -5.3 MMOL/L (-2.5-2.5); ABG HCO3 19.5 MMOL/L (20-26); ABG PCO2 36.1 MM HG (35-48); ABG PH 7.351 (7.35-7.45); ABG PO2 146.9 MM HG (80-95); ABG TCO2 20.6 MMOL/L (23-27)
[2020-10-11 03:55] LABS: ABG Oxygen Saturation 98.8 % (95-100)
[2020-10-11 04:29] LABS: Basophils % 0.1 % (0.0-0.8); Hematocrit 24.1 VOL% (42.0-52.0); Hemoglobin 7.5 GM/DL (14.0-18.0); Immature Granulocytes % 2.9 %; Immature Granulocytes Absolute 0.57 #; Lymphocytes # 2.9 10*3/uL (1.4-4.0); Lymphocytes % 14.5 % (21.2-54.2); Mean Corpuscular HGB Conc 31.1 GM/DL (32-36); Mean Corpuscular Volume 97.2 FL (87-102); Mean Platelet Volume 12.4 FL (9.6-12.0); Monocytes % 10.5 % (1.7-12.7); NRBC # 0.44 10*3/uL; Platelet Count 119 T/CUMM (130-400); Red Blood Count 2.48 MC/CUMM (3.8-5.5); White Blood Count 19.9 T/CUMM (4-12)
[2020-10-11 04:49] LABS: Lymphocytes 11 % (20-55); Nucleated Red Blood Cells 3 (0-5); Segmented Neutrophils 86 % (50-85); Total Cells Counted 100
[2020-10-11 04:50] LABS: Calcium 7.4 MG/DL (8.5-10.1); Hypochromasia Slight; Microcytosis 1+; Osmolality,Calculated 321.3 MOS/KG (273-304); Potassium 5.3 MMOL/L (3.5-5.1); Stomatocytes Slight
[2020-10-11] MEDS: hydrALAZINE 25 MG TABLET PO SCH ×2 (06:40→13:00)
[2020-10-11] MEDS: methylPREDNISolone SOD SUC 40 MG/1 ML VIAL IV SCH ×3 (08:50→21:34)
[2020-10-11] MEDS: INSULIN GLARGINE 100 UNIT/ML SUBCUT SCH ×2 (09:00→09:15)
[2020-10-11] MEDS: FAMOTIDINE 20 MG/2 ML VIAL IV SCH ×2 (09:00→09:15)
[2020-10-11] MEDS: CHOLECALCIFEROL 1,000 UNIT TABLET PO SCH (09:20)
[2020-10-11] MEDS: ZINC GLUCONATE 50 MG TABLET PO SCH (09:20)
[2020-10-11] MEDS: CETIRIZINE 10 MG TABLET PO SCH (09:20)
[2020-10-11] MEDS: ASCORBIC ACID 500 MG TABLET PO SCH ×2 (09:20→21:33)
[2020-10-11] MEDS ORDERED: LACTATED RINGERS 500 ML IV ONE (09:45)
[2020-10-11] MEDS: LEVOFLOXACIN INJ 750 MG/150 ML PREMIX IV SCH (13:38)
[2020-10-11] MEDS: HEPARIN DRIP 25,000 UNITS/500 ML PREMIX IV SCH (14:00)
[2020-10-11] MEDS: FLUCONAZOLE INJ 200 MG/100 ML PREMIX IV SCH (15:15)
[2020-10-11 17:15] LABS: Ferritin 4470.4 ng/ml (26-388)
[2020-10-11 19:55] VITALS: BP 76/49
[2020-10-11] MEDS: PHENYLEPHRINE DRIP 40 MG/250 ML PREMIX IV PRN (20:40)
[2020-10-11] MEDS: MELATONIN 3 MG TABLET PO SCH (21:33)
[2020-10-12] MEDS: DEXMEDETOMIDINE 400 MCG in SODIUM CHLORIDE 0.9% 96 ML IV PRN ×7 (00:42→21:50)
[2020-10-12] MEDS: INSULIN LISPRO 100 UNIT/ML SUBCUT SCH ×5 (00:55→16:52)
[2020-10-12] MEDS: ALBUTEROL INHALER 18 GM INH SCH ×5 (03:10→22:30)
[2020-10-12 04:00] LABS: ABG Base Excess -3.3 MMOL/L (-2.5-2.5); ABG HCO3 21.6 MMOL/L (20-26); ABG Oxygen Saturation 96.6 % (95-100); ABG PCO2 47.1 MM HG (35-48); ABG PH 7.299 (7.35-7.45); ABG PO2 93.3 MM HG (80-95); ABG TCO2 21.8 MMOL/L (23-27); Allen Test Positive; Pt O2 Delivery Device Ventilator
[2020-10-12 04:09] LABS: Basophils % 0.1 % (0.0-0.8); Hematocrit 24.5 VOL% (42.0-52.0); Hemoglobin 7.7 GM/DL (14.0-18.0); Immature Granulocytes % 4.3 %; Immature Granulocytes Absolute 1.35 #; Lymphocytes # 3.2 10*3/uL (1.4-4.0); Lymphocytes % 10.4 % (21.2-54.2); Mean Corpuscular HGB Conc 31.4 GM/DL (32-36); Mean Corpuscular Volume 96.8 FL (87-102); Mean Platelet Volume 13.4 FL (9.6-12.0); Monocytes % 11.3 % (1.7-12.7); NRBC # 0.99 10*3/uL; Neutrophils % 73.9 % (38.7-73.9); Platelet Count 161 T/CUMM (130-400); Red Blood Count 2.53 MC/CUMM (3.8-5.5); Red Cell Distribution Width 13.2 % (9.3-17.3); White Blood Count 31.2 T/CUMM (4-12)
[2020-10-12 04:38] LABS: Calcium 8.5 MG/DL (8.5-10.1); Osmolality,Calculated 331.7 MOS/KG (273-304); Potassium 5.8 MMOL/L (3.5-5.1)
[2020-10-12 04:39] LABS: Band Neutrophils 1 % (0-10); Hypochromasia 1+; Lymphocytes 8 % (20-55); Microcytosis 1+; Nucleated Red Blood Cells 9 (0-5); Platelet Estimate Adequate; Segmented Neutrophils 81 % (50-85); Total Cells Counted 100
[2020-10-12] MEDS: fentaNYL INJ 5,000 MCG in SODIUM CHLORIDE 0.9% 150 ML IV PRN ×4 (05:20→22:03)
[2020-10-12] MEDS: CHOLECALCIFEROL 1,000 UNIT TABLET PO SCH (08:08)
[2020-10-12] MEDS: ASCORBIC ACID 500 MG TABLET PO SCH ×2 (08:08→21:38)
[2020-10-12] MEDS: ACETAMINOPHEN 325 MG TABLET PO PRN ×2 (08:08→21:30)
[2020-10-12] MEDS: methylPREDNISolone SOD SUC 40 MG/1 ML VIAL IV SCH ×2 (08:08→21:39)
[2020-10-12] MEDS: FAMOTIDINE 20 MG/2 ML VIAL IV SCH ×2 (08:08→08:54)
[2020-10-12] MEDS: ZINC GLUCONATE 50 MG TABLET PO SCH (08:09)
[2020-10-12] MEDS: CETIRIZINE 10 MG TABLET PO SCH (08:09)
[2020-10-12] MEDS: INSULIN GLARGINE 100 UNIT/ML SUBCUT SCH ×2 (08:09→10:09)
[2020-10-12] MEDS: PHENYLEPHRINE DRIP 40 MG/250 ML PREMIX IV PRN (10:10)
[2020-10-12] MEDS ORDERED: HEPARIN 10,000 UNIT/10 ML VIAL IV SCH (10:15)
[2020-10-12] MEDS ORDERED: ALTEPLASE 2 MG VIAL IV ONE ×2 (10:30)
[2020-10-12] MEDS ORDERED: VANCOMYCIN INJ 1,250 MG in SODIUM CHLORIDE 0.9% 250 ML IV ONE (13:00)
[2020-10-12] MEDS: HEPARIN DRIP 25,000 UNITS/500 ML PREMIX IV SCH (14:15)
[2020-10-12] MEDS: MELATONIN 3 MG TABLET PO SCH (21:38)
[2020-10-13] MEDS: INSULIN LISPRO 100 UNIT/ML SUBCUT SCH ×4 (00:26→08:52)
[2020-10-13] MEDS: DEXMEDETOMIDINE 400 MCG in SODIUM CHLORIDE 0.9% 96 ML IV PRN ×5 (01:00→23:21)
[2020-10-13] MEDS: PHENYLEPHRINE DRIP 40 MG/250 ML PREMIX IV PRN ×5 (01:30→21:45)
[2020-10-13] MEDS: ALBUTEROL INHALER 18 GM INH SCH ×7 (02:25→23:18)
[2020-10-13] MEDS: fentaNYL INJ 5,000 MCG in SODIUM CHLORIDE 0.9% 150 ML IV PRN ×4 (03:30→21:44)
[2020-10-13 04:46] LABS: ABG Base Excess -7.6 MMOL/L (-2.5-2.5); ABG HCO3 19.2 MMOL/L (20-26); ABG Oxygen Saturation 94.2 % (95-100); ABG PCO2 45.4 MM HG (35-48); ABG PH 7.245 (7.35-7.45); ABG PO2 85.9 MM HG (80-95); ABG TCO2 20.6 MMOL/L (23-27)
[2020-10-13 05:53] LABS: Basophils # 0.1 10*3/uL (0.0-0.2); Basophils % 0.3 % (0.0-0.8); Hematocrit 22.5 VOL% (42.0-52.0); Hemoglobin 7.2 GM/DL (14.0-18.0); Immature Granulocytes % 4.5 %; Immature Granulocytes Absolute 1.18 #; Lymphocytes # 1.9 10*3/uL (1.4-4.0); Lymphocytes % 7.1 % (21.2-54.2); Mean Corpuscular Volume 97.8 FL (87-102); Mean Platelet Volume 13.8 FL (9.6-12.0); Monocytes % 10.6 % (1.7-12.7); NRBC # 1.48 10*3/uL; Neutrophils % 77.5 % (38.7-73.9); Platelet Count 142 T/CUMM (130-400); Red Cell Distribution Width 13.5 % (9.3-17.3); White Blood Count 26.3 T/CUMM (4-12)
[2020-10-13 06:26] LABS: Band Neutrophils 3 % (0-10); Eosinophils 1 % (0-10); Hypochromasia 1+; Lymphocytes 9 % (20-55); Microcytosis 1+; Myelocytes 1 %; Nucleated Red Blood Cells 9 (0-5); Segmented Neutrophils 78 % (50-85); Total Cells Counted 100
[2020-10-13 06:27] LABS: Platelet Estimate Adequate; Polychromasia Slight; Stomatocytes Slight
[2020-10-13] MEDS: methylPREDNISolone SOD SUC 40 MG/1 ML VIAL IV SCH ×2 (08:13→21:40)
[2020-10-13] MEDS: ZINC GLUCONATE 50 MG TABLET PO SCH (08:14)
[2020-10-13] MEDS: ASCORBIC ACID 500 MG TABLET PO SCH ×2 (08:14→21:41)
[2020-10-13] MEDS: CHOLECALCIFEROL 1,000 UNIT TABLET PO SCH (08:14)
[2020-10-13] MEDS: INSULIN GLARGINE 100 UNIT/ML SUBCUT SCH (08:14)
[2020-10-13] MEDS: CETIRIZINE 10 MG TABLET PO SCH (08:14)
[2020-10-13] MEDS: METOPROLOL TARTRATE 5 MG/5 ML VIAL IV PRN (08:14)
[2020-10-13] MEDS: LEVOFLOXACIN INJ 750 MG/150 ML PREMIX IV SCH (08:15)
[2020-10-13 08:27] LABS: Calcium 8.3 MG/DL (8.5-10.1); Osmolality,Calculated 334.1 MOS/KG (273-304)
[2020-10-13 08:29] LABS: Potassium 6.6 MMOL/L (3.5-5.1)
[2020-10-13 08:34] LABS: Ferritin 10807.7 ng/ml (26-388)
[2020-10-13] MEDS: FAMOTIDINE 20 MG/2 ML VIAL IV SCH (08:44)
[2020-10-13] MEDS ORDERED: INSULIN REGULAR 100 UNIT/ML IV ONE (09:03)
[2020-10-13] MEDS: INSULIN REGULAR DRIP 100 ML IV SCH (10:37)
[2020-10-13] MEDS: HEPARIN DRIP 25,000 UNITS/500 ML PREMIX IV SCH (13:11)
[2020-10-13] MEDS ORDERED: VANCOMYCIN INJ 1,250 MG in SODIUM CHLORIDE 0.9% 250 ML IV ONE (17:00)
[2020-10-13] MEDS: MELATONIN 3 MG TABLET PO SCH (21:41)
[2020-10-13] MEDS: PHENYLEPHRINE INJ 160 MG in SODIUM CHLORIDE 0.9% 234 ML IV PRN (23:01)
[2020-10-14] MEDS: ACETAMINOPHEN 325 MG TABLET PO PRN (01:58)
[2020-10-14] MEDS: ALBUTEROL INHALER 18 GM INH SCH ×3 (03:49→12:28)
[2020-10-14] MEDS: fentaNYL INJ 5,000 MCG in SODIUM CHLORIDE 0.9% 150 ML IV PRN ×2 (03:55→09:00)
[2020-10-14] MEDS: DEXMEDETOMIDINE 400 MCG in SODIUM CHLORIDE 0.9% 96 ML IV PRN ×2 (03:58→09:00)
[2020-10-14 04:48] LABS: ABG Base Excess -15.1 MMOL/L (-2.5-2.5); ABG HCO3 12.5 MMOL/L (20-26); ABG PCO2 41.6 MM HG (35-48); ABG TCO2 13.2 MMOL/L (23-27)
[2020-10-14 04:49] LABS: ABG PH 7.112 (7.35-7.45)
[2020-10-14 05:01] LABS: Basophils # 0.1 10*3/uL (0.0-0.2); Basophils % 0.4 % (0.0-0.8); Hematocrit 20.9 VOL% (42.0-52.0); Immature Granulocytes % 3.5 %; Immature Granulocytes Absolute 1.33 #; Lymphocytes % 2.6 % (21.2-54.2); Mean Corpuscular HGB Conc 30.6 GM/DL (32-36); Mean Corpuscular Volume 100.5 FL (87-102); Mean Platelet Volume 12.5 FL (9.6-12.0); Monocytes % 7.9 % (1.7-12.7); NRBC # 0.72 10*3/uL; Neutrophils % 85.6 % (38.7-73.9); Red Blood Count 2.08 MC/CUMM (3.8-5.5); Red Cell Distribution Width 13.9 % (9.3-17.3)
[2020-10-14 05:05] LABS: Platelet Count 84 T/CUMM (130-400); White Blood Count 38.6 T/CUMM (4-12)
[2020-10-14 05:06] LABS: Hemoglobin 6.4 GM/DL (14.0-18.0)
[2020-10-14] MEDS ORDERED: SODIUM BICARBONATE 50 MEQ/50 ML VIAL IV ONE ×2 (05:19→11:41)
[2020-10-14 05:25] LABS: Band Neutrophils 5 % (0-10); Hypochromasia 1+; Lymphocytes 6 % (20-55); Nucleated Red Blood Cells 4 (0-5); Platelet Estimate Decreased; Segmented Neutrophils 85 % (50-85)
[2020-10-14 05:26] LABS: Microcytosis Slight; Total Cells Counted 100
[2020-10-14] MEDS: PHENYLEPHRINE INJ 160 MG in SODIUM CHLORIDE 0.9% 234 ML IV PRN ×2 (06:02→16:15)
[2020-10-14 06:11] LABS: Calcium 7.6 MG/DL (8.5-10.1); Osmolality,Calculated 331.1 MOS/KG (273-304)
[2020-10-14 06:12] LABS: Potassium 8.1 MMOL/L (3.5-5.1)
[2020-10-14] MEDS ORDERED: SODIUM POLYSTYRENE SULFATE 15 GM/60 ML BOTTLE PO ONE (06:18)
[2020-10-14] MEDS ORDERED: INSULIN REGULAR 10 UNIT, CALCIUM GLUCONATE 1,000 MG in DEXTROSE 10% 250 ML IV ONE (06:20)
[2020-10-14] MEDS ORDERED: SODIUM CHLORIDE 0.9% 1,000 ML IV PRN (07:43)
[2020-10-14] MEDS: NOREPINEPHRINE 16 MG in SODIUM CHLORIDE 0.9% 234 ML IV PRN ×3 (09:00→11:45)
[2020-10-14] MEDS: METOPROLOL TARTRATE 5 MG/5 ML VIAL IV PRN (09:45)
[2020-10-14] MEDS ORDERED: NOREPINEPHRINE 4 MG/4 ML VIAL IV ONE (10:25)
[2020-10-14] MEDS ORDERED: SODIUM BICARBONATE 50 MEQ/50 ML SYRINGE IV ONE ×2 (10:26→10:30)
[2020-10-14 11:27] LABS: ABG Base Excess -12.3 MMOL/L (-2.5-2.5); ABG HCO3 14.6 MMOL/L (20-26); ABG Oxygen Saturation 99.2 % (95-100); ABG PCO2 46.3 MM HG (35-48); ABG TCO2 15.6 MMOL/L (23-27)
[2020-10-14 11:28] LABS: ABG PH 7.144 (7.35-7.45)
[2020-10-14 11:29] LABS: Basophils # 0.1 10*3/uL (0.0-0.2); Basophils % 0.3 % (0.0-0.8); Eosinophils % 0.1 % (0.00-10.9); Hematocrit 21.5 VOL% (42.0-52.0); Hemoglobin 6.7 GM/DL (14.0-18.0); Immature Granulocytes % 4.6 %; Immature Granulocytes Absolute 1.44 #; Lymphocytes # 0.9 10*3/uL (1.4-4.0); Lymphocytes % 2.9 % (21.2-54.2); Mean Corpuscular HGB Conc 31.2 GM/DL (32-36); Mean Corpuscular Volume 96.8 FL (87-102); Monocytes % 6.8 % (1.7-12.7); NRBC # 0.96 10*3/uL; Neutrophils % 85.3 % (38.7-73.9); Red Blood Count 2.22 MC/CUMM (3.8-5.5); White Blood Count 31.6 T/CUMM (4-12)
[2020-10-14 11:31] LABS: Platelet Count 55 T/CUMM (130-400)
[2020-10-14 12:12] LABS: Albumin 1.4 G/DL (3.4-5.0); Calcium 7.2 MG/DL (8.5-10.1); Osmolality,Calculated 316.3 MOS/KG (273-304); Total Protein 3.3 G/DL (6.4-8.2)
[2020-10-14 12:15] LABS: Potassium 7.2 MMOL/L (3.5-5.1)
[2020-10-14] MEDS: methylPREDNISolone SOD SUC 40 MG/1 ML VIAL IV SCH (12:25)
[2020-10-14] MEDS: CHOLECALCIFEROL 1,000 UNIT TABLET PO SCH (12:26)
[2020-10-14] MEDS: CETIRIZINE 10 MG TABLET PO SCH (12:26)
[2020-10-14] MEDS: INSULIN GLARGINE 100 UNIT/ML SUBCUT SCH (12:26)
[2020-10-14] MEDS: ZINC GLUCONATE 50 MG TABLET PO SCH (12:26)
[2020-10-14] MEDS: ASCORBIC ACID 500 MG TABLET PO SCH (12:26)
[2020-10-14] MEDS: INSULIN REGULAR DRIP 100 ML IV SCH (12:27)
[2020-10-14] MEDS: FAMOTIDINE 20 MG/2 ML VIAL IV SCH (12:28)
[2020-10-14 13:10] LABS: Anisocytosis 3+; Band Neutrophils 27 % (0-10); Lymphocytes 5 % (20-55); Nucleated Red Blood Cells 8 (0-5); Platelet Estimate Decreased; Polychromasia Slight; Segmented Neutrophils 60 % (50-85); Total Cells Counted 100
[2020-10-14 13:11] LABS: Macrocytosis 1+
== END 2020-10-14 13:03 | disposition expired | DRG 207 ==
LOC: N.ED 10:39 → SUATTDRO 13:49 → N.EDINP 13:49 → N.2E 21:03 → N.ICU 09-29 16:41
PROVIDERS: ADMIT Internal Medicine; ATTEND Internal Medicine